=== PATIENT | female | born 2000 | race African-American/Black ===

== ENCOUNTER 2025-06-05 23:37 | Inpatient (IN) | payer BC, MEDICAID ==
[~2025-06-05] VITALS: Ht 172.7 cm; Wt 80.1 kg
[2025-06-05 23:46] VITALS: O2SAT 100
[2025-06-06 01:03] LABS: BASOPHILS % 0.6 % (0.0-2.0); EOSINOPHILS % 0.0 % (0.0-5.0); HEMATOCRIT. 39.4 % (36.0-48.0); HEMOGLOBIN. 13.0 g/dL (12.0-16.0); LYMPHOCYTES % 24.0 % (20.0-50.0); MEAN PLATELET VOLUME 8.2 fl (7.4-10.4); MONOCYTES % 4.5 % (2.0-8.0); NEUTROPHILS % 70.9 % (40.0-76.0); PLATELET 244 x1000/uL (130-400); RED BLOOD CELL COUNT 4.16 mill/uL (4.2-5.4); RED CELL DISTRIBUTION WIDTH 13.7 % (11.6-14.6)
[2025-06-06] MEDS: ONDANSETRON HCL 4MG/2ML INJ IV ONE ×2 (01:04→02:24)
[2025-06-06] MEDS: SODIUM CHLORIDE 0.9% 1,000 ML IV ONE ×2 (01:04→03:57)
[2025-06-06] MEDS: MAGNESIUM/ALUMINUM HYDROXIDE/SIMETHICONE 30ML UDC PO ONE (01:04)
[2025-06-06] MEDS: KETOROLAC 15MG/ML VIAL IV ONE (01:05)
[2025-06-06 01:25] LABS: CREATININE 0.8 mg/dL (0.6-1.0)
[2025-06-06 01:26] LABS: UREA NITROGEN BLOOD 7 mg/dL (9-23)
[2025-06-06 01:27] LABS: ASPARTATE AMINOTRANSFERASE 23 IU/L (<34); BILIRUBIN DIRECT 0.2 mg/dL (<=3.0)
[2025-06-06 01:28] LABS: BILIRUBIN TOTAL 0.6 mg/dL (0.1-1.0); PROTEIN TOTAL 7.9 g/dL (6.0-8.3)
[2025-06-06] MEDS: DEXT 5% IV NR (01:33)
[2025-06-06] MEDS: WATER IV NR (01:33)
[2025-06-06] MEDS: ACETYLCYSTEINE IV NR (01:33)
[2025-06-06 02:05] LABS: INR 1.0
[2025-06-06] MEDS ORDERED: OXYC-662 MT (02:07)
[2025-06-06] MEDS ORDERED: ACET-2708 MT (02:07)
[2025-06-06] MEDS ORDERED: AMOX1TAB16 MT (02:07)
[2025-06-06] MEDS ORDERED: IBUP-1455 MT (02:07)
[2025-06-06] MEDS ORDERED: ONDA-239 PO (02:20)
[2025-06-06 02:22] LABS: HCG SCREEN NEGATIVE
[2025-06-06] MEDS: MORPHINE SULFATE 4 MG/ML INJ (FOR IV/IM USE) IV ONE (03:00)
[2025-06-06] MEDS ORDERED: IPRATROPIUM/ALBUTEROL 0.5-3(2.5)MG/3ML NEB HHN PRN (03:15)
[2025-06-06] MEDS ORDERED: GUAIFENESIN 200MG/10ML SUGAR FREE UDC PO PRN (03:15)
[2025-06-06] MEDS ORDERED: MAGNESIUM/ALUMINUM HYDROXIDE/SIMETHICONE 30ML UDC PO PRN (03:15)
[2025-06-06] MEDS ORDERED: ONDANSETRON HCL 4MG/2ML INJ IV PRN (03:15)
[2025-06-06] MEDS ORDERED: DOCUSATE SODIUM 100MG CAPSULE PO PRN (03:15)
[2025-06-06] MEDS ORDERED: MORPHINE SULFATE 4 MG/ML INJ (FOR IV/IM USE) IV PRN (03:15)
[2025-06-06] MEDS ORDERED: POTASSIUM CHLORIDE 40 MEQ in DEXT 5% WATER 230 ML IV ONE (03:45)
[2025-06-06] MEDS ORDERED: NALOXONE HCL 0.4MG/ML VIAL IV PRN (03:45)
[2025-06-06] MEDS: FAMOTIDINE 20MG/2ML VIAL IV ONE (03:59)
[2025-06-06] MEDS: KCL 20MEQ/100ML X 2 FOR TOTAL KCL 40MEQ/200ML IV SCH (05:08)
[2025-06-06 05:42] VITALS: BP 114/59; PULSE 53; RESP 16; TEMP 36.7; O2SAT 99
[2025-06-06] MEDS ORDERED: DEXTROSE 50% WATER 50ML SYRINGE IV PRN (05:45)
[2025-06-06] MEDS ORDERED: CLONIDINE 0.1MG TABLET PO PRN (06:15)
[2025-06-06 10:44] LABS: TRIGLYCERIDE 79.0 mg/dL (0-150)
[2025-06-06 10:45] LABS: LDL CHOLESTEROL 156.0 mg/dL (5-100)
[2025-06-06] MEDS ORDERED: PANTOPRAZOLE 40MG DR TABLET PO SCH (12:15)
== END 2025-06-06 10:39 | disposition left against medical advice (07) | DRG 918 ==
LOC: ER 23:37 → 6EST 06-06 02:50 → EDBEDREQ 06-06 02:53 → EDBEDREQTM 06-06 02:53 → ENRESERV 06-06 05:35
PROVIDERS: ADMIT Internal Medicine; ATTEND Internal Medicine
DX: T39.1X1A Poisoning by 4-Aminophenol derivatives, accidental (unintentional), initial encounter (principal); K92.0 Hematemesis; D64.9 Anemia, unspecified; E87.6 Hypokalemia; Z53.29 Procedure and treatment not carried out because of patient's decision for other reasons; E11.9 Type 2 diabetes mellitus without complications; E78.5 Hyperlipidemia, unspecified; I10 Essential (primary) hypertension; K08.89 Other specified disorders of teeth and supporting structures; Z82.49 Family history of ischemic heart disease and other diseases of the circulatory system; Y92.89 Other specified places as the place of occurrence of the external cause
CPT/HCPCS: 36415; 74176; 80048; 80061; 80076; 80307; 80329; 83036; 84703; 85025; 93005; 99285; A4606; J0132; J1308; J1885; J2270; J2405; J3480; J7030; J7060